=== PATIENT | female | born 1980 | race Caucasian/White ===

== ENCOUNTER 2021-09-16 05:23 | Emergency (ER) | payer OTHER ==
[2021-09-16 06:02] LABS: BASOPHIL 0.6 % (0-2); EOSINOPHIL 0.4 % (0-5); HCT 39.5 % (37.0-47.0); HGB 13.5 g/dl (12.5-16.0); LYMPHOCYTE 3.4 % (15-48); MCH 31.9 pg (25.0-31.0); MCHC 34.2 g/dL (32.0-36.0); MCV 93.4 fL (78.0-100.0); MONOCYTE 5.1 % (0-12); MPV 9.7 fL (6.0-9.5); NEUTROPHIL 90.2 % (41-80); NRBC 0; PLT 191 K/uL (150-400); RBC 4.23 M/uL (4.20-5.40); RDW 13.5 % (11.5-14.0); WBC 6.8 K/uL (4.0-10.5)
[2021-09-16 06:21] LABS: ALBUMIN 3.8 g/dL (3.4-5.0); BILIRUBIN - TOTAL 0.4 mg/dL (0.2-1.0); BUN/CREAT RATIO (CALC) 15.1 RATIO; CREATININE 0.86 mg/dL (0.51-0.95); POTASSIUM 3.9 mmol/L (3.5-5.1); TOTAL PROTEIN 6.8 g/dL (6.4-8.2)
[2021-09-16 06:40] LABS: INFLUENZA A NAA NEGATIVE (NEGATIVE)
[2021-09-16 06:58] LABS: CORONAVIRUS 2019 SARS-COV-2 POSITIVE (NEGATIVE)
[2021-09-16] MEDS ORDERED: ONDANSETRON ODT4 MG PO (07:06)
[2021-09-16] MEDS ORDERED: PAXLOVID CO-PA1 EAC1 PO (07:06)
== END 2021-09-16 07:44 | disposition home or self-care (01) ==
LOC: FER 05:23
PROVIDERS: Emergency Medicine
DX: U07.1 COVID-19 (principal); F17.200 Nicotine dependence, unspecified, uncomplicated
CPT/HCPCS: 36415; 80053; 84703; 85025; J1885; J2405; J7030; U0002